=== PATIENT | female | born 1970 | race Caucasian/White ===

== ENCOUNTER 2017-06-17 13:36 | Inpatient (IN) | payer OTHER ==
[2017-06-17] MEDS ORDERED: DIAZEPAM 5 MG/ML 2 ML SYRINGE IVP STA (14:35)
[2017-06-17] MEDS ORDERED: KETOROLAC 30 MG/ML 1 ML VIAL IVP STA (14:35)
[2017-06-17] MEDS ORDERED: ASPIRIN 81 MG PO STA (14:35)
--- NOTE | 2017-06-17 14:41 | ED ---
Back Pain HPI - General Chief Complaint: Back Pain/Injury Stated Complaint: back & neck pain Time Seen by Provider: 06/17/17 14:21 Source: patient Limitations: no limitations - History of Present Illness Initial Comments: Patient is a 46-year-old female presents with a chief complaint thoracic back pain. She states that her pain started this morning about 8:30 when she bent over to pick something up. The patient says that she has a history of chronic back problems and normally has popping in her back however today was much worse. Patient states that since then she has had intense pain in her thoracic spine radiating to her neck and bilateral arms. Patient also complains of chest pain, nausea, and periods of Diaphoresis. Patient has a medical history of chronic back pain, and ADHD. The patient denies any personal cardiac history. Patient states that she smoked a pack and half per day for several years however she quit in 2009. She does not have any significant personal or family cardiac history. She is not hypertensive or diabetic. - Related Data Home Medications Medication Instructions Recorded Confirmed HYDROcodone/APAP 5-325MG [[place] 0.5 - 1 tab PO DAILY PRN 06/17/17 06/17/17 5-325] Allergies Allergy/AdvReac Type Severity Reaction Status Date / Time ibuprofen AdvReac Hallucinati Verified 06/17/17 14:22 ons morphine AdvReac Nausea & Verified 06/17/17 14:22 Vomiting Review of Systems ROS Statement: Those systems with pertinent positive or pertinent negative responses have been documented in the HPI. ROS Other: All systems not noted in ROS Statement are negative. Constitutional: Denies: fever, chills Eyes: Denies: vision change ENT: Denies: ear pain, throat pain Respiratory: Denies: cough Cardiovascular: Reports: chest pain Endocrine: Denies: fatigue Gastrointestinal: Reports: nausea. Denies: abdominal pain, vomiting Genitourinary: Denies: dysuria Musculoskeletal: Reports: back pain Skin: Denies: rash Neurological: Denies: headache Psychiatric: Reports: as per HPI Hematological/Lymphatic: Reports: as per HPI Past Medical History Past Medical History: No Reported History History of Any Multi-Drug Resistant Organisms: None Reported Past Surgical History: Section Additional Past Surgical History / Comment(s): 3 c sections shoulder Past Psychological History: No Psychological Hx Reported, Anxiety Smoking Status: Never smoker Past Alcohol Use History: None Reported Past Drug Use History: Marijuana General Exam Limitations: no limitations General appearance: alert, in no apparent distress Head exam: Present: atraumatic Eye exam: Present: PERRL ENT exam: Present: mucous membranes moist Neck exam: Present: tenderness. Absent: meningismus Respiratory exam: Present: normal lung sounds bilaterally Cardiovascular Exam: Present: regular rate, normal rhythm GI/Abdominal exam: Present: soft. Absent: distended, tenderness Rectal exam: Present: deferred Extremities exam: Absent: tenderness Back exam: Present: tenderness (Patient has tenderness to palpation in the mid to lower thoracic region) Neurological exam: Present: alert, oriented X3, CN II-XII intact, normal gait Psychiatric exam: Present: normal affect, normal mood Skin exam: Present: warm, dry, intact Course Vital Signs 06/17/17 06/17/17 06/17/17 13:44 15:06 15:38 Temperature 97.3 F L Pulse Rate 60 67 73 Respiratory 18 18 18 Rate Blood Pressure 122/67 140/83 132/85 O2 Sat by Pulse 97 99 100 Oximetry 06/17/17 06/17/17 06/17/17 15:43 15:53 15:54 Temperature Pulse Rate 70 84 76 Respiratory 18 18 18 Rate Blood Pressure 116/75 138/85 116/72 O2 Sat by Pulse 99 98 100 Oximetry 06/17/17 06/17/17 15:59 16:00 Temperature 98.3 F Pulse Rate 85 80 Respiratory 18 18 Rate Blood Pressure 123/74 123/74 O2 Sat by Pulse 99 98 Oximetry Medical Decision Making - Medical Decision Making Patient presents with a chief complaint of back pain, and chest pain. Patient describes a mechanism of injury is consistent with an exacerbation of chronic back pain however given the patient is having nausea, and diaphoresis along with chest pain, she will have an EKG, and cardiac workup. They'll have x-rays of the chest, and back. She was given aspirin, Toradol, and Valium for pain control. 3:24 PM EKG performed at 1448 shows sinus rhythm with a rate of 60 bpm. Concerning findings include questionable elevation in lead 3, depressions in lead aVL and aVF. Also 1 mm depression in leads V2 through V5. EKG will be faxed to cardiology speech communication professor. Patient will be given nitroglycerin for chest pain. 3:30 PM I spoke with Dr. uDrand who is concerned for a STEMI. He states he will come to the emergency department. Cath team was activated. Patient was moved to the resuscitation bay. She was given Lipitor, and nitroglycerin. Patient had aspirin on arrival. Patient states that her pain is currently controlled. Her vital signs are stable. She is awake, alert, and oriented. Consent for the [facility] was signed. I will continue to monitor the patient while she is in the emergency department. 3:48 PM Repeat EKG shows ST elevations and leads 3, aVL and aVF. Repeat nitroglycerin will be held. Patient remained stable in the emergency department, she was transferred to the [facility] in stable condition. - Lab Data Result diagrams: 06/17/17 15:00 06/17/17 15:00 Lab Results 06/17/17 06/17/17 06/17/17 Range/Units 15:00 15:00 15:00 WBC 14.6 H (3.8-10.6) k/uL RBC 4.96 (3.80-5.40) m/uL Hgb 13.6 (11.4-16.0) gm/dL Hct 43.8 (34.0-46.0) % MCV 88.4 (80.0-100.0) fL MCH 27.4 (25.0-35.0) pg MCHC 31.0 (31.0-37.0) g/dL RDW 14.5 (11.5-15.5) % Plt Count 242 (150-450) k/uL Neutrophils % 89 % Lymphocytes % 6 % Monocytes % 3 % Eosinophils % 1 % Basophils % 0 % Neutrophils # 13.0 H (1.3-7.7) k/uL Lymphocytes # 0.9 L (1.0-4.8) k/uL Monocytes # 0.5 (0-1.0) k/uL Eosinophils # 0.1 (0-0.7) k/uL Basophils # 0.0 (0-0.2) k/uL Sodium 139 (137-145) mmol/L Potassium 4.5 (3.5-5.1) mmol/L Chloride 107 (98-107) mmol/L Carbon Dioxide 22 (22-30) mmol/L Anion Gap 10 mmol/L BUN 15 (7-17) mg/dL Creatinine 0.80 (0.52-1.04) mg/dL Est GFR (MDRD) Af Amer >60 (>60 ml/min/1.73 sqM) Est GFR (MDRD) Non-Af >60 (>60 ml/min/1.73 sqM) Glucose 143 H (74-99) mg/dL Calcium 9.5 (8.4-10.2) mg/dL Troponin I 1.330 H* (0.000-0.034) ng/mL Disposition Clinical Impression: STEMI (ST elevation myocardial infarction), Mechanical back pain Disposition: ADMITTED IP TO THIS HOSP Condition: Stable Referrals: None,Stated [Primary Care Provider] - 1-2 days Decision to Admit Reason: Admit from EC
[2017-06-17 15:12] LABS: Basophils % (A) 0 %; CHCM 31.8; Eosinophils # (A) 0.1 k/uL (0-0.7); Eosinophils % (A) 1 %; HCT 43.8 % (34.0-46.0); HDW 2.19; HGB 13.6 gm/dL (11.4-16.0); Luc # (Auto) 0.05; Luc % (Auto) 0; Lymphocytes # (A) 0.9 k/uL (1.0-4.8); Lymphocytes % (A) 6 %; MCH 27.4 pg (25.0-35.0); MCV 88.4 fL (80.0-100.0); Mean Platelet Volume 9.3; Monocytes # (A) 0.5 k/uL (0-1.0); Monocytes % (A) 3 %; Neutrophils % (A) 89 %; RBC 4.96 m/uL (3.80-5.40); RDW 14.5 % (11.5-15.5); WBC 14.6 k/uL (3.8-10.6); WBC (Perox) 15.39
[2017-06-17] MEDS: NITROGLYCERIN SL TABS 0.4 MG TAB SUBLINGUAL PRN ×2 (15:26→15:50)
[2017-06-17 15:33] LABS: Anion Gap 10 mmol/L; Blood Urea Nitrogen 15 mg/dL (7-17); Calcium 9.5 mg/dL (8.4-10.2); Carbon Dioxide 22 mmol/L (22-30); Chloride 107 mmol/L (98-107); Glucose 143 mg/dL (74-99); Non-African American GFR(MDRD) >60 (>60 ml/min/1.73 sqM); Potassium 4.5 mmol/L (3.5-5.1); Sodium 139 mmol/L (137-145)
--- NOTE | 2017-06-17 15:34 | XR ---
EXAMINATION TYPE: XR chest 2V DATE OF EXAM: 06/17/2017 COMPARISON: NONE HISTORY: Pain TECHNIQUE: Frontal and lateral views of the chest are obtained. FINDINGS: There is no focal air space opacity, pleural effusion, or pneumothorax seen. The cardiac silhouette size is within normal limits. The osseous structures are intact, postop change suspected the distal right clavicle. Patient is rotated. Surgical clips present in the upper abdomen IMPRESSION: No acute cardiopulmonary process.
--- NOTE | 2017-06-17 15:35 | XR ---
Thoracic spine HISTORY: Pain 3 views of the thoracic spine Thoracic vertebral bodies show preserved height, alignment, and bone mineralization. Multilevel spond ylosis is present. Disc spaces are maintained. Surgical clips in the right upper quadrant. IMPRESSION: Thoracic spondylosis.
[2017-06-17] MEDS ORDERED: CLOPIDOGREL 75 MG TAB PO STA (15:44)
[2017-06-17] MEDS ORDERED: HEPARIN SODIUM,PORCINE 5,000 UNIT/ML 1 ML VIAL IV STA (15:44)
[2017-06-17] MEDS ORDERED: HEPARIN SODIUM,PORCINE/D5W PMX 25,000 UNIT in DEXTROSE/WATER 1 500ML.BAG IV STA ×2 (15:44→15:51)
[2017-06-17] MEDS ORDERED: ATORVASTATIN 80 MG TAB PO STA (15:46)
[2017-06-17] MEDS ORDERED: NALOXONE 0.4 MG/ML 1 ML VIAL IV PRN (16:12)
[2017-06-17] MEDS ORDERED: LIDOCAINE 2% INJ 20 MG/ML (20 ML MDV) ONE (16:20)
[2017-06-17] MEDS ORDERED: diphenhydrAMINE 50 MG/ML 1 ML VIAL ONE (16:24)
[2017-06-17] MEDS ORDERED: MIDAZOLAM 2 MG/2 ML VIAL ONE (16:24)
[2017-06-17] MEDS ORDERED: diphenhydrAMINE 50 MG/ML 1 ML VIAL IVP ONE (16:25)
[2017-06-17] MEDS ORDERED: MIDAZOLAM 2 MG/2 ML VIAL IVP ONE (16:25)
[2017-06-17] MEDS ORDERED: LIDOCAINE 2% INJ 20 MG/ML SQ ONE (16:28)
[2017-06-17] MEDS ORDERED: SODIUM CHLORIDE 0.9% 1,000 ML IV ONE (16:34)
[2017-06-17] MEDS ORDERED: BIVALIRUDIN BOLUS 250 MG/50 ML IV ONE (16:37)
[2017-06-17] MEDS ORDERED: BIVALIRUDIN 250 MG in SODIUM CHLORIDE 0.9% 50 ML IV ONE (16:38)
[2017-06-17] MEDS: niCARdipine Syringe (1,000 mcg/10 mL) INTRACORON ONE ×2 (16:49→16:55)
[2017-06-17] MEDS ORDERED: HYDROmorphone 2 MG/ML 1 ML SYRINGE ONE (17:02)
[2017-06-17] MEDS ORDERED: HYDROmorphone 2 MG/ML 1 ML SYRINGE IV ONE (17:03)
[2017-06-17] MEDS ORDERED: IOHEXOL 350 MG/ML 100 ML BOTTLE INJ ONE (17:04)
[2017-06-17] MEDS ORDERED: NITROGLYCERIN SL TABS 0.4 MG TAB SUBLINGUAL PRN (17:53)
[2017-06-17] MEDS ORDERED: ZOLPIDEM 5 MG TAB PO PRN (17:53)
[2017-06-17] MEDS ORDERED: ATROPINE SULFATE 0.1 MG/ML 10ML SYRINGE IV PRN (17:53)
[2017-06-17] MEDS ORDERED: MAG HYDROX/AL HYDROX/SIMETH 30 ML CUP PO PRN (17:53)
[2017-06-17] MEDS ORDERED: RX INFO: IV CONTRAST WAS GIVEN 1 EACH MISC MISCELLANE PRN (17:53)
[2017-06-17 17:58] LABS: Glucose,Whole Blood 121 mg/dL (75-99)
[2017-06-17] MEDS ORDERED: FUROSEMIDE 10 MG/ML 2 ML VIAL IV ONE (18:00)
[2017-06-17] MEDS ORDERED: SODIUM CHLORIDE 0.9% 1,000 ML IV SCH (18:00)
--- NOTE | 2017-06-17 18:38 | CONS ---
CONSULTATION This is a 46-year-old lady who does not have a primary care physician. Her brought her in because she was complaining of back discomfort. According to the ER physician, with whom I spoke, she complained of saying that she had a back discomfort when she bent down to pick something up. He evaluated the patient initially and then later on almost an hour or so later there were some review of systems and he thought she had some diaphoresis and he went back and talked to her and she then told me she had chest pain starting at about 7:30 or 8:00 this morning. In view of this, he ordered an EKG, which revealed inferior ST elevation, but there were only Q-waves in 2, 3, AVF. It is unclear when her chest pain actually started, although the patient insists on my questioning that they started around 8:00 a.m. this morning. At the time of my evaluation, she was complaining of upper back discomfort with also some vague discomfort in the anterior chest as well. She was hemodynamically stable, in no distress. She is not a smoker. She quit smoking in 2009 and has a family history of CAD, but no diabetes or hypertension and cholesterol status is unknown. In view of her upper back discomfort and also chest discomfort that occurred at 7:00 or 8:00 am this morning, and in view of EKG changes, I recommend that we will take her to the labor supervisor and treat this as a myocardial infarction with atypical presentation and a chest pain of about 12 hour duration. There was evidence of ST elevation involving the inferior leads, but there were already Q-waves. PAST MEDICAL HISTORY: No evidence of any prior myocardial infarction or CVA. She has no history of any diabetes or hypertension. She is a past smoker and has family history of CAD. MEDICATIONS: At home she takes some hydrocodone/[place] 5/325 half a tablet p.r.n. ALLERGIES: She is allergic to morphine and ibuprofen. PHYSICAL EXAMINATION: Blood pressure is 130/80, pulse rate is about 84 per minute, regular. HEENT: Unremarkable. Fundus was not examined by me. Neck is supple. No JVD. I do not hear a carotid bruit. Heart exam reveals S1, S2 heard normally. No rub, murmur or rp3ngpt. Lungs are clear. Abdomen is soft, nontender. Lower extremities reveal normal pulses. No edema. Central nervous system is normal. 1. EKG revealed sinus mechanism, inferior ST elevation with Q-waves suggestive of a subacute myocardial infarction. 2. Family history of coronary artery disease. 3. Past history of smoking. RECOMMENDATION: I recommended prompt cardiac catheterization and intervention and proceeded to perform procedure expeditiously. I discussed at length with the patient and also her regarding risks, benefits, and options. They understood and agreed and wished to proceed. MMVITOL / LUIS MIGUELN: [id number] /
--- NOTE | 2017-06-17 18:44 | CC ---
CARDIAC CATHETERIZATION REPORT DATE OF SERVICE: 06/17/2017 PROCEDURE: 1. Left heart catheterization and coronary angiography. 2. Aspiration thrombectomy using an export catheter. 3. PTCA and stenting of proximal right coronary artery with a drug-eluting stent. CARDIAC CATHETER FINDINGS: 1. Dominant RCA with a 95% proximal occlusion with laden with thrombus. 2. Nondominant circumflex and LAD and left main were free of significant disease. 3. Left ventricular end-diastolic pressure was 26 mmHg without gradient across the aortic valve. MEDICATIONS USED: The patient received 600 mg of Plavix in the emergency room. The patient received Angiomax bolus and infusion as per protocol here in the [facility]. Vascular closure device used was a Perclose with good hemostasis. Moderate conscious sedation was provided with a Versed and Benadryl combination for a total duration of 45 minutes. CLINICAL INFORMATION: Mrs. Leonie Amador presented with atypical back discomfort and also then complained of some chest pain, had some diaphoresis and EKG after an hour after arrival revealed ST elevation and Q-waves in inferior leads and therefore she was advised cardiac catheterization. PROCEDURE NOTE: Under local anesthesia and strict aseptic precautions, a 6-[place] introducer was placed in the right femoral artery. Using a standard left Edith catheter, I performed selective coronary angiography, used a pigtail catheter to a check LV pressures. LV gram was not performed. Used a guide catheter for the right coronary artery and proceeded to perform intervention in the same setting. I had noted that patient had a 95% stenosis involving the RCA. I addressed this expeditiously. The patient was given Angiomax bolus and infusion as per protocol. I used a run-through wire to cross the lesion. Wire was kept distally 3.0 caliber 15 mm long trek balloon was used to pre- dilate the lesion. There was a lot of thrombus. I then performed aspiration thrombectomy using an export catheter with a significant improvement in angiographic appearance and flow. I then used a 23 mm long 3.25 caliber Xience stent and deployed this at the site of subtotal occlusion. Excellent angiographic result was achieved. I also used a nicardipine intracoronary and this improved the overall flow. Excellent angiographic result without complication was achieved. The sheath was taken out and a Perclose device used to secure hemostasis and patient was sent to the room in stable condition. CORONARY ANGIOGRAPHY FINDINGS: Right coronary artery: This is a dominant vessel that is subtotally occluded in the proximal portion sluggish flow, 99% stenosis with significant amount of thrombus. Distal vessel seemed to be a fairly decent caliber. This was a dominant RCA. Left main coronary artery: Short, patent disease-free vessel that bifurcates into LAD and circumflex. Left anterior descending coronary artery: Fair caliber vessel extends along the antral wall gives off septal and diagonal branches, runs towards the apex and towards the apex the vessel is of small caliber in distribution. LAD is therefore smaller caliber in distribution vessel. No significant disease. Left posterior circumflex coronary artery: This vessel has a very limited flow. The left circumflex branch in the vessel is extremely small. This is a nondominant insignificant circumflex system. FINAL IMPRESSION: This patient had 99% proximal RCA stenosis with thrombus. RCA was dominant. Left main, LAD and circumflex were all free of significant disease. Circumflex was small. Left ventricular end-diastolic pressure was elevated. A drug-eluting stent was deployed and a 3.25 caliber Xience stent was deployed. Excellent angiographic result was achieved. Results were discussed with the patient and family and patient was sent to the ICU in a stable condition. MMODL / IJN: [id number] /
[2017-06-17] MEDS: CARVEDILOL 3.125 MG TAB PO SCH (18:59)
[2017-06-18 04:50] LABS: Basophils % (A) 0 %; CH 27.9; CHCM 32.2; Eosinophils % (A) 0 %; HCT 37.6 % (34.0-46.0); HDW 2.27; HGB 12.1 gm/dL (11.4-16.0); Luc # (Auto) 0.14; Luc % (Auto) 1; Lymphocytes # (A) 1.5 k/uL (1.0-4.8); Lymphocytes % (A) 13 %; MCHC 32.1 g/dL (31.0-37.0); MCV 87.1 fL (80.0-100.0); Mean Platelet Volume 8.2; Monocytes # (A) 0.7 k/uL (0-1.0); Monocytes % (A) 6 %; Neutrophils # (A) 9.5 k/uL (1.3-7.7); Neutrophils % (A) 80 %; RBC 4.31 m/uL (3.80-5.40); RDW 13.2 % (11.5-15.5); WBC (Perox) 11.78
[2017-06-18 05:03] LABS: Anion Gap 5 mmol/L; Blood Urea Nitrogen 15 mg/dL (7-17); Calcium 8.6 mg/dL (8.4-10.2); Carbon Dioxide 25 mmol/L (22-30); Chloride 107 mmol/L (98-107); Glucose 122 mg/dL (74-99); Magnesium 1.9 mg/dL (1.6-2.3); Non-African American GFR(MDRD) >60 (>60 ml/min/1.73 sqM); Phosphorous 3.1 mg/dL (2.5-4.5); Potassium 3.9 mmol/L (3.5-5.1); Sodium 137 mmol/L (137-145)
[2017-06-18] MEDS ORDERED: Potassium Replacement Protocol 1 EACH MISC MISCELLANE PRN (05:22)
[2017-06-18] MEDS: MAGNESIUM SULFATE-D5W PMX 1 GM in DEXTROSE/WATER 1 100ML.BAG IVPB SCH ×2 (05:51→08:09)
[2017-06-18] MEDS ORDERED: POTASSIUM CHLORIDE ER 20 MEQ TAB.ER PO SCH (06:00)
[2017-06-18] MEDS: CLOPIDOGREL 75 MG TAB PO SCH (08:07)
[2017-06-18] MEDS: CARVEDILOL 3.125 MG TAB PO SCH ×2 (08:07→18:19)
[2017-06-18] MEDS: ASPIRIN 81 MG PO SCH (08:07)
[2017-06-18] MEDS: LOSARTAN 25 MG TAB PO SCH (08:07)
[2017-06-18 10:43] VITALS: BMI 37.7
--- NOTE | 2017-06-18 11:12 | PN ---
PROGRESS NOTE Mrs. Amador suffered from an acute NV yesterday. It is a inferior-posterior NV. I performed stenting of RCA. No significant disease in the left system. Her troponin went up to 150. She is comfortable, resting, not in heart failure. Blood pressure 108/70, pulse rate 70 per minute. JVD is not evident. S1, S2 heard normally. No significant murmur noted. Lungs are clear. Abdomen and lower extremity exam is unchanged. Plan is to obtain an echo and review it today. Continue current medications. Increase activity and move her to the telemetry tomorrow. The patient has quit smoking in 2009. Advised to continue to refrain from smoking and continue current medical regimen. Increase activity. MMODL / IJN: [id number] /
[2017-06-18] MEDS: ATORVASTATIN 80 MG TAB PO SCH (21:07)
[2017-06-19 04:55] LABS: INR 1.1 (<1.2); Prothrombin Time 10.7 sec (9.0-12.0)
[2017-06-19 05:15] LABS: Anion Gap 7 mmol/L; Blood Urea Nitrogen 11 mg/dL (7-17); Calcium 8.9 mg/dL (8.4-10.2); Carbon Dioxide 21 mmol/L (22-30); Chloride 107 mmol/L (98-107); Glucose 101 mg/dL (74-99); Magnesium 2.1 mg/dL (1.6-2.3); Non-African American GFR(MDRD) >60 (>60 ml/min/1.73 sqM); Phosphorous 2.8 mg/dL (2.5-4.5); Potassium 4.3 mmol/L (3.5-5.1); Sodium 135 mmol/L (137-145)
[2017-06-19 05:18] LABS: Basophils % (A) 0 %; CHCM 31.6; Eosinophils % (A) 0 %; HCT 40.7 % (34.0-46.0); HGB 12.9 gm/dL (11.4-16.0); Luc # (Auto) 0.19; Luc % (Auto) 2; Lymphocytes # (A) 2.1 k/uL (1.0-4.8); Lymphocytes % (A) 17 %; MCH 28.2 pg (25.0-35.0); MCHC 31.7 g/dL (31.0-37.0); MCV 88.9 fL (80.0-100.0); Mean Platelet Volume 8.5; Monocytes # (A) 0.8 k/uL (0-1.0); Monocytes % (A) 7 %; Neutrophils # (A) 9.1 k/uL (1.3-7.7); Neutrophils % (A) 74 %; RBC 4.58 m/uL (3.80-5.40); RDW 13.2 % (11.5-15.5); WBC 12.3 k/uL (3.8-10.6); WBC (Perox) 12.92
[2017-06-19] MEDS: ASPIRIN 81 MG PO SCH (07:56)
[2017-06-19] MEDS: CLOPIDOGREL 75 MG TAB PO SCH (07:56)
[2017-06-19] MEDS: CARVEDILOL 3.125 MG TAB PO SCH ×2 (07:56→17:12)
--- NOTE | 2017-06-19 08:38 | ECHOF ---
Referral Reason:S/P Inf TN PCI MEASUREMENTS -------- HEIGHT: 160.0 cm WEIGHT: 99.8 kg BP: 95/60 IVSd: 1.0 cm (0.6 - 1.1) LVIDd: 4.6 cm (3.9 - 5.3) LVPWd: 1.2 cm (0.6 - 1.1) IVSs: 1.4 cm LVIDs: 4.1 cm LVPWs: 1.2 cm Ao Diam: 3.0 cm (2.0 - 3.7) AV Cusp: 2.2 cm (1.5 - 2.6) LA Diam: 3.4 cm (2.7 - 3.8) MV EXCURSION: 15.618 mm (> 18.000) MV EF SLOPE: 114 mm/s (70 - 150) EPSS: 0.5 cm MV E Shorty: 0.89 m/s MV DecT: 189 ms MV A Shorty: 0.81 m/s MV E/A Ratio: 1.10 RAP: 5.00 mmHg RVSP: 11.16 mmHg FINDINGS -------- Sinus rhythm. This was a technically good study. The left ventricular size is normal. There is borderline concentric left ventricular hypertrophy. Overall left ventricular systolic function is mild-moderately impaired with, an EF between 40 - 45 % . Inferior Hypokinesis Mid to basal inferiorlateral is hypokinetic Inferoseptal is hypokinetic The right ventricle is normal in size and function. The left atrium is normal in size. The right atrium is normal in size. The aortic valve is trileaflet, and appears structurally normal. No aortic stenosis or regurgitation. There is trace mitral regurgitation. Trace tricuspid regurgitation present. The right ventricular systolic pressure, as measured by Dopp ler, is 11.16mmHg. Pulmonic valve appears structurally normal. The aortic root size is normal. The pericardium is normal. CONCLUSIONS -------- 1. Sinus rhythm. 2. This was a technically good study. 3. The left ventricular size is normal. 4. There is borderline concentric left ventricular hypertrophy. 5. Inferior Hypokinesis 6. Mid to basal inferiorlateral is hypokinetic 7. Inferoseptal is hypokinetic 8. The right ventricle is normal in size and function. 9. The left atrium is normal in size. 10. The right atrium is normal in size. 11. The aortic valve is trileaflet, and appears structurally normal. No aortic stenosis or regurgitat ion. 12. There is trace mitral regurgitation. 13. Trace tricuspid regurgitation present. 14. The right ventricular systolic pressure, as measured by Doppler, is 11.16mmHg. 15. Pulmonic valve appears structurally normal. 16. The aortic root size is normal. 17. The pericardium is normal. SOCIAL MEDIA CAMPAIGN MANAGER: Halina Gallagher RDCS
[2017-06-19] MEDS: LOSARTAN 25 MG TAB PO SCH (11:05)
--- NOTE | 2017-06-19 11:06 | PN ---
PROGRESS NOTE This young lady presented with acute inferior posterior MA. Echo revealed ejection fraction in the 40% range. She had a short run of what seemed to be a PAD or atrial flutter, which was very brief, less than 10 seconds. She is resting comfortably without symptoms. Vitals are stable. I am asking that we give the losartan at bedtime as opposed to morning because of her blood pressure is on the lower end of normal, S1, S2 heard normally. Lungs are clear. Abdomen and lower exam unchanged. There is no JVD. Plan is to continue current medication. Increase activity and move her to telemetry today. MMODL / IJN: [id number] /
[2017-06-19] MEDS ORDERED: HYDROcodone/APAP 5-325MG 1 EACH TAB PO PRN (13:58)
[2017-06-19 14:57] LABS: ALT 54 U/L (9-52); AST 122 U/L (14-36); Alkaline Phosphatase 79 U/L (38-126); Anion Gap 8 mmol/L; Blood Urea Nitrogen 10 mg/dL (7-17); Carbon Dioxide 22 mmol/L (22-30); Chloride 108 mmol/L (98-107); Glucose 103 mg/dL (74-99); Non-African American GFR(MDRD) >60 (>60 ml/min/1.73 sqM); Potassium 4.3 mmol/L (3.5-5.1); Sodium 138 mmol/L (137-145); Total Bilirubin 0.9 mg/dL (0.2-1.3); Total Protein 6.3 g/dL (6.3-8.2)
--- NOTE | 2017-06-19 15:33 | HP ---
HISTORY AND PHYSICAL CHIEF COMPLAINTS: Chest pain. HISTORY OF PRESENT ILLNESS: This 46-year-old woman with a past history of asthma, GERD, history of pneumonia, chronic back pain, not being followed by any primary care physician in the outpatient setting was admitted with chest pain which is felt in the anterior part of chest which is severe in character. Patient also had significant changes in the EKG showed acute inferior wall myocardial infarction with atrophic changes. Patient had cardiac catheterization and thrombectomy and as well as stenting in the PTCA and stenting of the proximal RCA with a drug-eluting stent by cardiology. Patient being closely monitored. There is no history of fever, rigors. No headache, loss of consciousness, no history of any hematochezia or melena at this time. PAST MEDICAL HISTORY: Asthma, GERD, history of pneumonia, DJD ADHD, history of smoking. MEDICATIONS: Prior to admission, [place] 5 mg daily p.r.n. ALLERGIES: IBUPROFEN, MORPHINE. FAMILY HISTORY: History of cancer and migraines. SOCIAL HISTORY: Previous history of smoking. Occasional THC. REVIEW OF SYSTEMS: ENT: No diminished vision. No diminished hearing. Cardiovascular as mentioned earlier. Respiratory: As mentioned earlier. GI no nausea or vomiting. no dysuria or retention. Nervous system: No numbness or weakness. Allergy/Immunology: No asthma or hayfever. MUSCULOSKELETAL: As mentioned earlier. HEMATOLOGY/ONCOLOGY: No history of anemia. Endocrine: No history of diabetes or hypothyroidism. Constitutional: As mentioned earlier. Dermatology: Negative. Rheumatology: Negative. Psychiatric: As mentioned earlier. PHYSICAL EXAMINATION: Alert and oriented times three. Pulse 78, blood pressure 102/68 respiration 18, temperature 98 degrees, pulse ox 98% on room air. HEENT: Conjunctivae normal. Oral mucosa moist. Neck is no jugular venous distention. No carotid bruit. No lymph node enlargement. Cardiovascular S1-S2 muffled. No S3, no S4. Respiratory: Breath sounds diminished in the bases. A few rhonchi and no crackles. ABDOMEN: Soft, nontender. No mass palpable. Legs no edema and no swelling. NERVOUS SYSTEM: Higher functions as mentioned earlier. Moves all four limbs. No focal deficits. Lymphatics: No lymph nodes palpable in the neck, axillae or groin. SKIN: No ulcer, rashes or bleeding. LABS: At this time WBC 12.2, hemoglobin 12.9. ASSESSMENT: 1. Chest pain, acute inferior wall myocardial infarction status post cardiac catheterization, PTCA and stenting of the RCA. 2. Increased WBC, possibly reactive. 3. History of asthma. 4. History of gastroesophageal reflux disease. 5. History of pneumonia. 6. History of chronic back pain. 7. Degenerative joint disease. 8. History of attention-deficit/hyperactivity disorder. 9. History of anxiety. 10.History of cholecystectomy. 11.Remote history of nicotine dependence. 12.Remote history of ETOH. RECOMMENDATIONS AND DISCUSSION: In this 46-year-old woman who presented with multiple complex medical issues, we will monitor the patient closely, continue the current medications. Continue with beta blockers and antiplatelet agents. Patient is on Plavix and aspirin. Otherwise continue to monitor. Repeat labs. Continue with Lipitor. Prognosis guarded because of the multiple complex medical issues. Discussed with the patient. Follow closely cardiology. Increase ambulation. Further recommendations to follow. MMVITOL / LUIS MIGUELN: [id number] /
[2017-06-19] MEDS ORDERED: LOSARTAN 25 MG TAB PO SCH (21:00)
[2017-06-19] MEDS: ATORVASTATIN 80 MG TAB PO SCH (22:31)
[2017-06-20 02:49] VITALS: RESP 18
[2017-06-20 06:23] LABS: Basophils # (A) 0.1 k/uL (0-0.2); Basophils % (A) 1 %; CH 27.8; CHCM 31.7; Eosinophils # (A) 0.1 k/uL (0-0.7); Eosinophils % (A) 1 %; HCT 43.7 % (34.0-46.0); HDW 2.13; HGB 13.8 gm/dL (11.4-16.0); Luc # (Auto) 0.15; Luc % (Auto) 1; Lymphocytes % (A) 16 %; MCH 27.7 pg (25.0-35.0); MCHC 31.5 g/dL (31.0-37.0); Mean Platelet Volume 8.9; Monocytes # (A) 0.8 k/uL (0-1.0); Monocytes % (A) 6 %; Neutrophils # (A) 9.6 k/uL (1.3-7.7); Neutrophils % (A) 76 %; RBC 4.96 m/uL (3.80-5.40); RDW 14.3 % (11.5-15.5); WBC 12.7 k/uL (3.8-10.6); WBC (Perox) 13.01
[2017-06-20] MEDS: ASPIRIN 81 MG PO SCH (08:05)
[2017-06-20] MEDS: CLOPIDOGREL 75 MG TAB PO SCH (08:05)
[2017-06-20 09:00] VITALS: TEMP 97.8
[2017-06-20] MEDS: CARVEDILOL 3.125 MG TAB PO SCH (09:56)
[2017-06-20 10:08] VITALS: BP 132/80
[2017-06-20 11:00] VITALS: PULSE 75
--- NOTE | 2017-06-20 13:51 | P.DS ---
Providers Date of admission: 06/17/17 16:21 Expected date of discharge: 06/20/17 Attending physician: Marie Oconnell Consults: 06/17/17 17:53 Consult Physician Routine Consulting Provider: [facility] Consult Reason/Comments: Post Interventional patient Do you want consulting provider notified?: Already Contacted Primary care physician: Stated None Dr. 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 leukocytosis, possibly reactive 3. Gastroesophageal reflux disease 4. Degenerative joint disease 5. Remote history of nicotine dependence 6.attention deficit/hyperactivity disorder Hospital course:this is a 46-year-old femaleadmitted with acute inferior wall SC. evaluated by cardiology, underwent cardiac catheterization, PTCA and stenting of the RCA. tolerated procedure well. ambulating, tolerating exertion well, denies chest pain, no focal deficits.Significant clinical improvement.Patient has been cleared for discharge by cardiology. Patient is being discharged home in a stable condition with guarded prognosis. The impression and plan of care has been dictated as directed. : I performed a history and examination of this patient, discussed the same with the dictator. I agree with the dictator's note ,documented as a scribe. Any additional findings or plans will be noted. Patient Condition at Discharge: Stable Plan - Discharge Summary Discharge Rx Participant: Yes New Discharge Prescriptions: New Aspirin 81 mg PO DAILY #30 chew Atorvastatin [Lipitor] 80 mg PO HS #30 tab Carvedilol [Coreg] 3.125 mg PO BID-W/MEALS #60 tab Clopidogrel [Plavix] 75 mg PO DAILY #30 tab Losartan [Cozaar] 25 mg PO HS #30 tab Nitroglycerin Sl Tabs [Nitrostat] 0.4 mg SUBLINGUAL Q5M PRN #100 tab PRN Reason: Chest Pain Continue HYDROcodone/APAP 5-325MG [Alma 5-325] 0.5 - 1 tab PO DAILY PRN PRN Reason: Pain Discharge Medication List HYDROcodone/APAP 5-325MG [Alma 5-325] 0.5 - 1 tab PO DAILY PRN 06/17/17 [ History] Aspirin 81 mg PO DAILY #30 chew 06/20/17 [Rx] Atorvastatin [Lipitor] 80 mg PO HS #30 tab 06/20/17 [Rx] Carvedilol [Coreg] 3.125 mg PO BID-W/MEALS #60 tab 06/20/17 [Rx] Clopidogrel [Plavix] 75 mg PO DAILY #30 tab 06/20/17 [Rx] Losartan [Cozaar] 25 mg PO HS #30 tab 06/20/17 [Rx] Nitroglycerin Sl Tabs [Nitrostat] 0.4 mg SUBLINGUAL Q5M PRN #100 tab 06/20/17 [ Rx] Follow up Appointment(s)/Referral(s): Gerber Roa MD [REFERRING] - 3 Days (Please schedule prior to discharge.) Ambulatory/Diagnostic Orders: Comprehensive Metabolic Panel [LAB.AMB] Time Frame: 3 Days, Location: Determined By Patient Patient Instructions/Handouts: *[facility] - After Heart Catheterization - Watch Technician Instructions Activity/Diet/Wound Care/Special Instructions: Confirm cardiology final DC recommendations, and schedule cardiology follow-up appointment prior to discharge DIet: Cardiac
--- NOTE | 2017-06-20 15:02 | PN ---
PROGRESS NOTE This lady suffered from inferoposterior KS. She is doing better. Denies chest pains. Functional capacity has improved. Ejection fraction is about 40%. Vital signs are stable. No JVD. S1-S2 heard normally. Lungs are clear. Abdomen lower extremity exam unchanged. Plan is to continue current medications. Increase activity and discharge her and she will be seen in the office in 1 week. MMODL / LUIS MIGUELN: [id number] /
== END 2017-06-20 14:33 | disposition home or self-care (01) | DRG 174 ==
LOC: EC 13:36 → 6ICU 16:21 → 6SEL 06-19 11:21
PROVIDERS: ADMIT Internal Medicine Interventional Cardiology; ATTEND Hospitalist
PROC: B2111ZZ Fluoroscopy of Multiple Coronary Arteries using Low Osmolar Contrast (ICD-10-PCS; 2017-06-17)
PROC: 02C03ZZ Extirpation of Matter from Coronary Artery, One Artery, Percutaneous Approach (ICD-10-PCS; 2017-06-17)
PROC: 027034Z Dilation of Coronary Artery, One Artery with Drug-eluting Intraluminal Device, Percutaneous Approach (ICD-10-PCS; principal; 2017-06-17 16:05)
PROC: 4A023N7 Measurement of Cardiac Sampling and Pressure, Left Heart, Percutaneous Approach (ICD-10-PCS; 2017-06-17 16:05)
DX: I21.19 ST elevation (STEMI) myocardial infarction involving other coronary artery of inferior wall (principal); I48.92 Unspecified atrial flutter; F12.90 Cannabis use, unspecified, uncomplicated; F90.9 Attention-deficit hyperactivity disorder, unspecified type; G89.29 Other chronic pain; I25.10 Atherosclerotic heart disease of native coronary artery without angina pectoris; J45.909 Unspecified asthma, uncomplicated; K21.9 Gastro-esophageal reflux disease without esophagitis; M19.90 Unspecified osteoarthritis, unspecified site; D72.829 Elevated white blood cell count, unspecified; F41.9 Anxiety disorder, unspecified; M54.9 Dorsalgia, unspecified; I49.1 Atrial premature depolarization; Z87.891 Personal history of nicotine dependence; Z88.6 Allergy status to analgesic agent; Z88.5 Allergy status to narcotic agent; Z82.49 Family history of ischemic heart disease and other diseases of the circulatory system
CPT/HCPCS: 36415; 71020; 72072; 80048; 80053; 83735; 84100; 84132; 84484; 85025; 85610; 93005; 93306; 93458; 96365; 96375; 96376; 99285

== ENCOUNTER → 2020-05-28 | Outpatient (CLI) | payer OTHER ==
[2020-05-28 11:51] LABS: Basophils % (A) 1 %; Eosinophils # (A) 0.1 k/uL (0-0.7); Eosinophils % (A) 1 %; HCT 40.9 % (34.0-46.0); Lymphocytes # (A) 1.7 k/uL (1.0-4.8); Lymphocytes % (A) 23 %; MCH 28.8 pg (25.0-35.0); MCHC 31.7 g/dL (31.0-37.0); MCV 90.9 fL (80.0-100.0); Mean Platelet Volume 8.9; Monocytes # (A) 0.4 k/uL (0-1.0); Monocytes % (A) 5 %; Neutrophils # (A) 5.1 k/uL (1.3-7.7); Neutrophils % (A) 69 %; Platelet Count 195 k/uL (150-450); RDW 13.4 % (11.5-15.5); WBC 7.4 k/uL (3.8-10.6)
[2020-05-28 21:04] LABS: African American GFR (CKD) 99.6 (60.0-200.0); Albumin 4.3 g/dL (3.80-4.90); Albumin/Globulin Ratio 2.05 (1.60-3.17); Anion Gap 6.3 mmol/L (4.00-12.00); BUN/Creat Ratio 17.5 Ratio (12.00-20.00); Calcium 9.1 mg/dL (8.7-10.3); Carbon Dioxide 25.7 mmol/L (21.6-31.8); Globulin 2.1 g/dL (1.6-3.3); Potassium 4.1 mmol/L (3.5-5.5); Total Bilirubin 0.7 mg/dL (0.3-1.2); Total Protein 6.4 g/dL (6.2-8.2)
[2020-05-28 21:06] LABS: Hemoglobin A1C 6.1 % (4.0-6.0)
[2020-05-28 21:10] LABS: T4, Free (Free Thyroxine) 1.1 ng/dL (0.80-1.80)
[2020-05-28 22:31] LABS: Erythrocyte Sedimentation Rate 19 mm/Hr (0-20)
== END | disposition home or self-care (01) ==
LOC: LABWHC1 10:32
PROVIDERS: ATTEND Internal Medicine
DX: K21.9 Gastro-esophageal reflux disease without esophagitis (principal); I25.10 Atherosclerotic heart disease of native coronary artery without angina pectoris; R53.82 Chronic fatigue, unspecified
CPT/HCPCS: 36415; 80053; 82306; 82607; 83036; 84439; 84443; 85025; 85652; 86431

== ENCOUNTER → 2020-06-25 | Outpatient (CLI) | payer OTHER ==
--- NOTE | 2020-06-26 14:08 | MR ---
EXAMINATION TYPE: MR lumbar spine wo con DATE OF EXAM: 06/25/2020 COMPARISON: NONE HISTORY: LBP, BLE radiculopathy for 5 months per patient. TECHNIQUE: Multiplanar, multisequence imaging of the lumbar spine is performed without IV contrast. FINDINGS: Sagittal images of the lumbar spine show vertebral body heights to remain satisfactory. The re is grade 1 retrolisthesis L5 on S1. The intervertebral discs demonstrate normal heights and hydrat ion. The conus medullaris is normal in position and signal ending at L1-L2 disc space level. 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 The bone marrow signal intensity is within normal l imits. Axial images show T12-L1 level to appear within normal limits. Axial images at L1-L2 and L2-L3 levels and mild/moderate facet degenerative changes bilaterally. Axial images at L3-L4 level mild broad disc bulge and facet arthropathy bilaterally. There is mild ef facement of the anterolateral thecal sac. Patent bilateral neural foramina. Axial images at L4-L5 level show mild/moderate facet arthropathy bilaterally. Spinal canal is preserv ed. Patent bilateral neural foramina. Axial images at the L5-S1 level show mild facet arthropathy bilaterally otherwise are within normal l imits. The paraspinal spinal muscle bulk is maintained. IMPRESSION: Mild multilevel degenerative changes in the lumbar spine as detailed above. No suspicious prominent focal disc herniation.
== END | disposition home or self-care (01) ==
LOC: RADMRIMAIN 15:32
PROVIDERS: ATTEND Internal Medicine
DX: M47.26 Other spondylosis with radiculopathy, lumbar region (principal)
CPT/HCPCS: 72148

== ENCOUNTER → 2021-04-01 | Outpatient (CLI) | payer BC, OTHER | END | disposition home or self-care (01) | LOC: LABWHC1 16:13 | PROVIDERS: ATTEND Internal Medicine Interventional Cardiology | DX: E03.9 Hypothyroidism, unspecified (principal) | CPT/HCPCS: 36415; 84443 ==

== ENCOUNTER → 2022-03-17 | Outpatient (CLI) | payer OTHER ==
[2022-03-17 18:56] LABS: African American GFR (CKD) 86.1 (60.0-200.0); BUN/Creat Ratio 17.15 Ratio (12.00-20.00); Blood Urea Nitrogen 15.3 mg/dL (9.0-27.0); Calcium 9.4 mg/dL (8.7-10.3); Carbon Dioxide 24.1 mmol/L (20.0-27.5); Chloride 105 mmol/L (96-109); Glucose 114 mg/dL (70-110); Non-African American GFR(CKD) 74.3 (60.0-200.0); Potassium 4.1 mmol/L (3.5-5.5); Sodium 140 mmol/L (135-145)
== END | disposition home or self-care (01) ==
LOC: LABWHC1 10:36
PROVIDERS: ATTEND Internal Medicine Interventional Cardiology
DX: I25.10 Atherosclerotic heart disease of native coronary artery without angina pectoris (principal); R53.83 Other fatigue
CPT/HCPCS: 36415; 80048; 84443

== ENCOUNTER 2022-08-17 06:44 | Day surgery (SDC) | payer OTHER ==
[~2022-08-17 06:44] MED LIST: LACTATED RINGERS 1,000 ML IV SCH; LIDOCAINE 1% (10MG/ML) FOR IV START INTRADERMA PRN
[2022-08-17 07:16] VITALS: TEMP 97
[2022-08-17] MEDS ORDERED: PROPOFOL 10 MG/ML 20 ML VIAL IV ONE (07:49)
[2022-08-17] MEDS ORDERED: LIDOCAINE 2% INJ 20 MG/ML (2 ML VIAL) ONE (07:49)
--- NOTE | 2022-08-17 08:08 | P.PCN ---
Date of Procedure: 08/17/22 Procedure(s) Performed: Brief history: Patient is a pleasant 51-year-old white female scheduled for an elective upper endoscopy as well as colonoscopy as a part of evaluation of intermittent nausea vomiting as well as a habits for the last several years duration. Her symptoms have been progressively getting worse lately. She denies any recent weight loss. Procedure performed: Esophagogastroduodenoscopy with biopsy Colonoscopy with biopsy and snare polypectomy Preoperative diagnosis: Chronic persistent nausea with intermittent emesis of several months duration Chronic diarrhea Anesthesia: MAC Procedure: After informed consent was obtained from the patient was brought into the endoscopy unit and IV sedation was administered by anesthesia under continuous monitoring. Initially upper endoscopy was done. The Olympus GF 160 video endoscope was inserted inserted into the mouth and esophagus intubated without any difficulty and was gradually advanced into the stomach and duodenum and carefully examined. The bulb and second part of the duodenum appeared normal. Biopsies were done from the duodenum to rule out celiac disease. The scope was then withdrawn into the stomach adequately insufflated with air and upon careful examination the antrum and mild antral gastritis and biopsies were done from this area. Mucosa of the body, cardia and fundus appeared normal. The scope was then withdrawn into the esophagus. The GE junction was located at 34 cm to the incisors. Small sliding type hiatal hernia. It appeared regular with no erythema erosions or ulcerations. Rest of the esophagus appeared normal. Patient tolerated the procedure well. At this time the patient continued to remain sedation. Initial digital rectal examination was normal. Olympus CF 160 video colonoscope was then inserted into the rectum and gradually advanced to the cecum without any difficulty. Careful examination was performed as the scope was gradually being withdrawn. The prep was excellent. The cecum, ascending colon, transverse colon, descending colon appeared normal. In the sigmoid colon there was a 6 mm polyp that was removed by snare polypectomy. The rectum appeared normal. and biopsies were done from ascending and descending colon to rule out microscopic/collagenous coliti s.Retroflexion was performed in the rectum and no lesions were noted. Patient tolerated the procedure well. Impression: 1. Upper endoscopy revealed mild antral gastritis and small sliding type hiatal hernia. 2. Colonoscopy revealed a 6 mm; polyp status post polypectomy and the rest of the colon appeared normal Recommendations: Findings of this examination were discussed with the patient as well as her family. She was advised to follow with the biopsy results. She'll continue with omeprazole 20 mg daily as well as Zofran as needed for nausea. She'll be seen in office in 2-3 weeks.. If the biopsy with adenoma she can have a repeat colonoscopy in 5
[2022-08-17 08:15] VITALS: RESP 18
[2022-08-17 08:33] VITALS: BP 134/83; PULSE 66
== END 2022-08-17 09:02 | disposition home or self-care (01) ==
LOC: ORWHC2ENDO 06:44
PROVIDERS: ATTEND Internal Medicine Gastroenterology
DX: D12.5 Benign neoplasm of sigmoid colon (principal); K31.9 Disease of stomach and duodenum, unspecified; D72.820 Lymphocytosis (symptomatic); K44.9 Diaphragmatic hernia without obstruction or gangrene; K29.70 Gastritis, unspecified, without bleeding; I25.10 Atherosclerotic heart disease of native coronary artery without angina pectoris; I10 Essential (primary) hypertension; E78.5 Hyperlipidemia, unspecified; Z88.5 Allergy status to narcotic agent; Z79.899 Other long term (current) drug therapy; Z79.02 Long term (current) use of antithrombotics/antiplatelets
CPT/HCPCS: 45380; 45385; 43239; J2704; J2001; 88305

== ENCOUNTER → 2023-01-01 | Outpatient (CLI) | payer OTHER ==
[2023-01-02 09:29] LABS: African American GFR (CKD) >90; BUN/Creat Ratio 15.38 Ratio; Blood Urea Nitrogen 12.3 mg/dL; Calcium 8.8 mg/dL; Chloride 110 mmol/L; Chol/HDL Ratio 5.18 Ratio; Glucose 106 mg/dL; LDL Cholesterol,Calculated 145.9 mg/dL; Potassium 4.2 mmol/L; Sodium 143 mmol/L
[2023-01-03 10:16] LABS: Non-African American GFR(CKD) 84.6
== END | disposition home or self-care (01) ==
LOC: LABWHC1 08:46
PROVIDERS: ATTEND Nurse Practitioner
DX: I25.10 Atherosclerotic heart disease of native coronary artery without angina pectoris (principal); R00.2 Palpitations
CPT/HCPCS: 36415; 80048; 80061; 84443

== ENCOUNTER 2023-03-03 14:35 | Emergency (ER) | payer OTHER ==
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
[2023-03-03 19:12] VITALS: BP 129/80; PULSE 54; RESP 16; TEMP 98
== END 2023-03-03 19:16 | disposition home or self-care (01) ==
LOC: EC 14:35
DX: S16.1XXA Strain of muscle, fascia and tendon at neck level, initial encounter (principal); J45.909 Unspecified asthma, uncomplicated; Z88.5 Allergy status to narcotic agent; Z88.6 Allergy status to analgesic agent; Z87.891 Personal history of nicotine dependence; V49.9XXA Car occupant (driver) (passenger) injured in unspecified traffic accident, initial encounter; Y92.410 Unspecified street and highway as the place of occurrence of the external cause
CPT/HCPCS: 70450; 71046; 72125; 99284

== ENCOUNTER → 2023-03-15 | Outpatient (CLI) | payer OTHER ==
--- NOTE | 2023-03-16 09:56 | MM ---
Reason for Exam: Screening (asymptomatic). Last mammogram was performed 18 year(s) and 4 month(s) ago. Patient History: Menarche at age 12. First Full-Term at age 17. Postmenopausal. Risk Values: Terri 5 year model risk: 0.8%. NCI Lifetime model risk: 6.2%. Prior Study Comparison: 11/26/2004 Bilateral Screening Mammogram, [facility]. Tissue Density: The breast tissue is heterogeneously dense. This may lower the sensitivity of mammography. Findings: Analyzed By CAD. There is no suspicious group of microcalcifications or new suspicious mass in either breast. Overall Assessment: Negative, BI-RAD 1 Management: Screening Mammogram of both breasts in 1 year. . Patient should continue monthly self-breast exams. A clinical breast exam by your physician is recommended on an annual basis. This exam should not preclude additional follow-up of suspicious palpable abnormalities. Note on Terri scores and lifetime risk: 1. A Terri score greater than 3% is considered moderate risk. If this is the case, consider specialist referral to assess eligibility for a risk reducing agent. 2. If overall lifetime risk for the development of breast cancer is 20% or higher, the patient may qualify for future screening with alternating mammogram and breast MRI. Electronically signed and approved by: Walter Levin M.D. Radiologis
== END | disposition home or self-care (01) ==
LOC: RADMAMWWP 15:43
PROVIDERS: ATTEND Family Medicine
DX: Z12.31 Encounter for screening mammogram for malignant neoplasm of breast (principal); Z78.0 Asymptomatic menopausal state
CPT/HCPCS: 77067

== ENCOUNTER → 2023-07-05 | Outpatient (CLI) | payer OTHER ==
--- NOTE | 2023-07-05 15:43 | MR ---
EXAMINATION TYPE: MR shoulder LT wo con DATE OF EXAM: 07/05/2023 2:00 PM COMPARISON: NONE HISTORY: M25.512 l shoulder pain TECHNIQUE: Multiplanar multispin echo imaging of the left shoulder was performed. Patient motion limi ts evaluation. FINDINGS: Rotator cuff : There is thinning and heterogeneity of the supraspinatus tendon compatible chronic ten dinopathy. Motion limits evaluation. There is no complete or bursal/articular sided partial rotator c uff tear. The subscapularis constituent of the rotator cuff is intact. Bursa: No bursal effusion or thickening is seen. Musculature: There is no muscular tear, contusion, or atrophy. Acromioclavicular joint : Lateral downsloping of the acromion with subacromial spurring resulting in moderate impingement. Moderate AC joint arthropathy. Osseous structures : There are no fractures or r egions of abnormal bone marrow signal intensity. Long biceps tendon : The biceps tendon is normally situated within the bicipital groove. No complete or partial biceps tendon tear is present. Glenohumeral Joint fluid : There is no glenohumeral joint effusion. Cartilage and Bone : No focal hyaline cartilage defects are noted. No Hill-Sachs, reverse Hill-Sachs, or bony Bankart lesions are seen. Labrum : There are no SLAP or soft tissue Bankart lesions. No paralabral cysts are seen. OTHER FINDINGS : none IMPRESSION: 1. Chronic tendinopathy with subacromial impingement.
== END | disposition home or self-care (01) ==
LOC: RADMRIMAIN 12:44
PROVIDERS: ATTEND Orthopaedic Surgery
DX: M25.812 Other specified joint disorders, left shoulder (principal)

== ENCOUNTER → 2024-01-05 | Outpatient (CLI) | payer OTHER ==
[2024-01-05 19:49] LABS: Basophils # (A) 0.05 X 10*3/uL (0.00-0.10); Basophils % (A) 0.5 %; Eosinophils # (A) 0.13 X 10*3/uL (0.04-0.35); Eosinophils % (A) 1.3 %; HCT 37.7 % (37.2-46.3); Lymphocytes # (A) 1.81 X 10*3/uL (0.90-5.00); Lymphocytes % (A) 17.7 %; MCH 27.5 pg (27.0-32.0); MCHC 31.8 g/dL (32.0-37.0); MCV 86.3 FL (80.0-97.0); Mean Platelet Volume 11.5 FL (9.5-12.2); Monocytes # (A) 0.63 X 10*3/uL (0.20-1.00); Monocytes % (A) 6.2 %; NRBC Per 100 WBC 0 X 10*3/uL (0.00-0.01); Neutrophils # (A) 7.55 X 10*3/uL (1.80-7.70); Neutrophils % (A) 73.9 %; Platelet Count 315 X 10*3/uL (140-440); RBC 4.37 X 10*6/uL (4.10-5.20); RDW 13.2 % (11.5-14.5); WBC 10.21 X 10*3/uL (4.50-10.00)
[2024-01-05 23:23] LABS: Potassium 4.4 mmol/L (3.5-5.5)
== END | disposition home or self-care (01) ==
LOC: LABPAT 12:27
PROVIDERS: ATTEND Orthopaedic Surgery
DX: Z01.818 Encounter for other preprocedural examination (principal); R94.31 Abnormal electrocardiogram [ECG] [EKG]
CPT/HCPCS: 80051; 85025; 93005

== ENCOUNTER → 2024-01-19 | Day surgery (SDC) | payer OTHER ==
[2024-01-16 11:03] VITALS: BMI 42.5
--- NOTE | 2024-01-18 22:40 | HP ---
HISTORY AND PHYSICAL DATE OF SCHEDULED SURGERY: 01/19/2024. HISTORY OF PRESENT ILLNESS: Leonie Amador is a 53-year-old patient, was seen with progressive right shoulder pain. We discussed options regarding treatment. She elected to proceed with right shoulder arthroscopy. Consent was obtained. PAST MEDICAL HISTORY: Asthma, gastroesophageal reflux disease, hyperlipidemia, and hypertension. PAST SURGICAL HISTORY: Shoulder arthroscopy, cholecystectomy, section. DAILY MEDICATIONS: 1. Aspirin. 2. Atorvastatin. 3. Carvedilol. 4. Celebrex. 5. Flexeril. 6. Gabapentin. 7. Omeprazole. 8. Ventolin. ALLERGIES: Morphine, Motrin. SOCIAL HISTORY: She denies tobacco use. PHYSICAL EVALUATION OF RIGHT SHOULDER: Flexion is 130 degrees. Abduction is 90 degrees. External rotation is 30 degrees with pain and weakness. Tenderness along the anterior lateral acromion rotator cuff insertion. Impingement is positive at 80 degrees. Drop-arm sign is positive. Distal neurovascular exam is intact. RADIOGRAPHS: Right shoulder radiographs revealed previous Massimo procedure. Right shoulder MRI revealed partial rotator cuff tendon tear. IMPRESSION: 1. Right shoulder impingement with partial rotator cuff tear. 2. Hypertension. 3. Hyperlipidemia. 4. Gastroesophageal reflux disease. 5. Asthma. PLAN: Right shoulder arthroscopy with subacromial decompression, rotator cuff repair and debridement. MMODL / IJN: [id number] /
[~2024-01-19] MED LIST changes: +DEXAMETHASONE SOD PHOSPHATE 4 MG/ML 1 ML VIAL ONE; +GLYCOPYRROLATE 0.2 MG/ML 2 ML VIAL ONE; -LACTATED RINGERS 1,000 ML IV SCH; +LIDOCAINE 1% INJ 10MG/ML (20 ML MDV) ONE; +NEOSTIGMINE 1 MG/ML 10 ML VIAL ONE; +PHENYLEPHRINE-0.9% NACL SYG 1,000 MCG/10 ML SYRINGE ONE; +PROPOFOL 10 MG/ML 20 ML VIAL IV ONE; +ROCURONIUM 10 MG/ML (5 ML VIAL) IV ONE; +ROPIVACAINE 5 MG/ML 30 ML VIAL ONE; +SUCCINYLCHOLINE CHLORIDE 200 MG/10 ML VIAL IV ONE; +ePHEDrine 50 MG/ML 1 ML VIAL ONE; +fentaNYL (PF) 50 MCG/ML 2 ML AMP IV PRN; +fentaNYL (PF) 50 MCG/ML 2 ML AMP ONE
[2024-01-19] MEDS: ONDANSETRON 4 MG/2 ML VIAL IVP ONE (06:53)
[2024-01-19] MEDS: DEXAMETHASONE SOD PHOSPHATE 4 MG/ML 1 ML VIAL IV ONE (06:53)
[2024-01-19] MEDS: SCOPOLAMINE 1 MG/72 HR PATCH TRANSDERM ONE (06:53)
[2024-01-19] MEDS: LACTATED RINGERS 1,000 ML IV SCH (06:54)
[2024-01-19] MEDS: IV FLUID CONTINUATION 1,000 ML IV ONE ×2 (06:54→10:09)
[2024-01-19] MEDS: MIDAZOLAM 2 MG/2 ML VIAL IVP ONE (07:02)
[2024-01-19 08:57] VITALS: TEMP 96.9
--- NOTE | 2024-01-19 08:57 | P.OP ---
Date of Procedure: 01/19/24 Preoperative Diagnosis: Right shoulder impingement Postoperative Diagnosis: 1. Right shoulder rotator cuff tear 2. Right shoulder impingement 3. Right shoulder bicipital tendinitis 4. Right shoulder superficial labral tear Procedure(s) Performed: 1. Right shoulder arthroscopic rotator cuff repair 2. Right shoulder arthroscopic subacromial decompression 3. Right shoulder arthroscopic biceps tenodesis 4. Right shoulder arthroscopic debridement labral tear Implants: 2Arthrex 4.75 swivel lock anchors Anesthesia: GETA, regional (Interscalene block) Surgeon: Hans Dowd Textile Supervisor #1: Renny Mosher Estimated Blood Loss (ml): 7 Pathology: none sent Condition: stable Disposition: PACU Indications for Procedure: 53-year-old patient seen with progressive right shoulder pain. After we discussed treatment options, she elected to proceed with arthroscopy. Operative Findings: See description of procedure Description of Procedure: Patient underwent an interscalene block by department of anesthesia. The patient was then taken to the operative suite. The patient underwent a general anesthetic by the department of anesthesia. The patient was placed into a lateral position and secured. There was appropriate padding of the bony prominence. Right shoulder was then prepped and draped in normal sterile orthopedic fashion. We placed the extremity in 10 pounds of longitudinal traction. A posterior incision was now made for a posterior working portal site. The trocar and cannula were inserted into the glenohumeral joint. Arthroscopy was initiated. Spinal needle was now inserted anteriorly, to ascertain the anterior working portal site. An incision was now made in that area, a trocar was inserted followed by a probe. There was superficial tearing of the superior labrum. There was hyperemia along the biceps tendon consistent with bicipital tendinitis. There was no significant chondromalacia present. I decided to proceed with an arthroscopic biceps tenotomy. I first debrided out the superficial labral tear. I now placed a cannula through the anterior portal site. I now passed a loop and tack type stitch to the biceps tendon. I now rel eased the biceps from the superior labral anchor. With the assistance of Regino GOLD I punched a hole at the interval for insertion of an anchor. The suture was passed through the eyelet of an Arthrex 4.75 swivel lock anchor. I placed the eyelet into our prepunched hole. I held in position while Regino GOLD tensioned the suture and deployed the anchor. The residual suture limb was clipped. We had a stable appearing biceps tenodesis. Utilizing the posterior working portal site, the trocar and cannula were inserted into the subacromial space. Arthroscopy initiated. I made an incision 2 fingerbreadths lateral to the acromion. I introduced my trocar followed by my ArthroCare ablator. I now began ablating thick subacromial bursal tissue, which exposed the undersurface of the anterior acromion. There was diminished subacromial space. There was a prominent subacromial spur present. I used a motorized bur and performed a decompression. I noted good decompression of subacromial space. There was evidence of previous Massimo procedure was appears stable. I now turned my attention to the rotator cuff tendon. I noted a tear through the posterior aspect of the distal supraspinatus. This measured under centimeter. I debrided the margins getting down to stable tendon tissue. I abraded the footprint with a motorized bur. I passed 3 inverted mattress sutures through good bites of rotator cuff tendon. I punched a hole in the footprint area for insertion of an anchor. All 6 limbs of suture were passed through the eyelet of an Arthrex 4.75 swivel lock anchor. I placed the eyelet into the preplanned hole. I held in position while Regino GOLD tensioned all 6 limbs of suture and deployed the anchor with good fixation noted. All residual suture limbs were now clipped. We had good compression of the tendon along the entire footprint. Instruments now removed from the portal sites. All portal sites were approximated with nylon suture. Sterile dressings were applied followed by a shoulder sling. Renny GOLD assisted in this complex case. The patient was awakened, transferred to a bed, and taken to recovery in stable condition.
[2024-01-19] MEDS: ONDANSETRON 4 MG/2 ML VIAL IVP STA (10:25)
[2024-01-19] MEDS: droPERidol 5 MG/2 ML VIAL IVP ONE (10:50)
[2024-01-19 11:45] VITALS: RESP 18
[2024-01-19 11:56] VITALS: BP 118/60; PULSE 58
--- NOTE | 2024-01-19 18:06 | P.ANPRN ---
Procedure Note - Anesthesia - Nerve Block Performed Right Interscalene Single Time Out Performed: Yes Date of Procedure: 01/19/24 Procedure Start Time: 07:01 Procedure Stop Time: 07:04 Location of Patient: PreOp Indication: Acute Post-Operative Pain, Requested by Surgeon Sedation Type: Sedate with meaningful contact maintained Preparation: Sterile Prep Position: Supine Catheter: None Needle Types: Pajunk Needle Gauge: 21 Ultrasound used to visualize needle placement: Yes Ultrasound used to observe medication spread: Yes Blood Aspirated: No Pain Paresthesia on Injection Noted: No Resistance on Injection: Normal Image Stored and Saved: Yes Events: Uneventful and Well Tolerated (Ropivacaine 0.5% 20 cc plus dexamethasone 4 mg)
== END | disposition home or self-care (01) ==
LOC: OR 05:42
PROVIDERS: ATTEND Orthopaedic Surgery
DX: M75.111 Incomplete rotator cuff tear or rupture of right shoulder, not specified as traumatic (principal); M25.811 Other specified joint disorders, right shoulder; M75.21 Bicipital tendinitis, right shoulder; M75.41 Impingement syndrome of right shoulder; K21.9 Gastro-esophageal reflux disease without esophagitis; J45.909 Unspecified asthma, uncomplicated; I10 Essential (primary) hypertension; G89.18 Other acute postprocedural pain; E78.5 Hyperlipidemia, unspecified; Z88.5 Allergy status to narcotic agent; Z90.49 Acquired absence of other specified parts of digestive tract; Z79.51 Long term (current) use of inhaled steroids; Z79.899 Other long term (current) drug therapy; Z79.82 Long term (current) use of aspirin
CPT/HCPCS: 64415; 29826; 29827; 29828; C1713 ×3; J2250; J1100; J0690; J2405; J1790

== ENCOUNTER → 2024-04-24 | Outpatient (CLI) | payer OTHER ==
--- NOTE | 2024-04-24 11:26 | CTL ---
EXAMINATION TYPE: CT Low Dose Lung DATE OF EXAM ORDERED: 04/24/2024 HISTORY: Personal history of nicotine use, former smoker, quit 2009, 20 pack year history. Lung cance r screening CT DLP: 91.[address] CTDI: 2.6 mGy Automated exposure control for dose reduction was used. SCREENING VISIT: First screening visit COMPARISON: No direct comparisons TECHNIQUE: Low dose computed tomography scan was performed through the chest at 1 mm thick sections a nd reconstructed images in multiple planes at 1 mm and [address] DIAGNOSTIC QUALITY: Satisfactory FINDINGS: Nodules: No clinically significant pulmonary nodules. LUNGS: COPD: Severity: None Fibrosis: Severity: None Lymph nodes: None Other findings: Possible right apical azygous fissure. RIGHT PLEURAL SPACE: Effusion: None Calcification: None Thickening: None Pneumothorax: None LEFT PLEURAL SPACE: Effusion: None Calcification: None Thickening: None Pneumothorax: None HEART: Heart Size: Normal Coronary Calcification: Small Pericardial Effusion: None OTHER FINDINGS: Upper abdomen: Postcholecystectomy changes. Small hiatal hernia. Bony thorax: None Supraclavicular region: None Other: Mild atherosclerotic calcification of the aorta and its branches. IMPRESSION: No clinically significant pulmonary nodules. CT LUNG RAD AND CT CHEST RECOMMENDATION: Lung-Rad 1 Negative: Continue annual screening with LDCT in 12 months. S Modifier (other clinically significant findings): None [facility], , 04/24/2024 11:23 AM
--- NOTE | 2024-04-29 14:50 | MM ---
Reason for Exam: Screening (asymptomatic). Last mammogram was performed 1 year(s) and 1 month(s) ago. Patient History: Menarche at age 12. First Full-Term at age 17. Postmenopausal. Patient used Hormonal Contraceptives for 2 years. Risk Values: Terri 5 year model risk: 0.8%. NCI Lifetime model risk: 6.1%. Prior Study Comparison: 11/26/2004 Bilateral Screening Mammogram, [facility]. 03/15/2023 Bilateral MG screening mammo w CAD, [facility]. Tissue Density: There are scattered areas of fibroglandular density. Findings: Analyzed By CAD. The pattern is symmetrical. No significant interval change is evident. No suspicious groups of microcalcifications, spiculated or lobular masses, architectural distortion or other secondary signs of malignancy are mammographically apparent. Overall Assessment: Benign, BI-RAD 2 Management: Screening Mammogram of both breasts in 1 year. A negative mammogram report should not preclude additional follow up of suspicious palpable abnormalities. Patient should continue monthly self breast exam. A clinical breast exam by your physician is recommended on an annual basis and results should be correlated with mammographic findings. Note on Terri scores and lifetime risk: 1. A Terri score greater than 3% is considered moderate risk. If this is the case, consider specialist referral to assess eligibility for a risk reducing agent. 2. If overall lifetime risk for the development of breast cancer is 20% or higher, the patient may qualify for future screening with alternating mammogram and breast MRI. [facility], , 04/29/2024 2:47 PM. Electronically signed and approved by: Delvis Thurman D.O. Radiologis
== END | disposition home or self-care (01) ==
LOC: RADMAMWWP 09:34
PROVIDERS: ATTEND Family Medicine
DX: Z12.2 Encounter for screening for malignant neoplasm of respiratory organs (principal); Z12.31 Encounter for screening mammogram for malignant neoplasm of breast; R92.323 Mammographic fibroglandular density, bilateral breasts; Z87.891 Personal history of nicotine dependence; Z78.0 Asymptomatic menopausal state
CPT/HCPCS: 71271; 77067

== ENCOUNTER → 2024-11-08 | Outpatient (CLI) | payer OTHER ==
--- NOTE | 2024-11-08 14:53 | CT ---
EXAMINATION TYPE: CT abdomen pelvis wo con DATE OF EXAM: 11/08/2024 COMPARISON: None CLINICAL INDICATION: Female, 54 years old with history of R10.11 RIGHT UPPER QUADRANT PAIN; PHH, epig astric burning TECHNIQUE: CT scan of the abdomen and pelvis is performed without oral or IV contrast. CT DLP: 1128.[address] CTDI: mGy Automated exposure control for dose reduction was used. FINDINGS: Within the limitations of a non-contrast study, the following observations are made. The lungs are clear. The gallbladder is surgically absent . 0There is no biliary ductal dilatation. There is no organomegaly of the liver, pancreas, spleen or adrenal glands. There are no renal calcifications or hydronephrosis. The caliber of the abdominal aorta is normal and there is no retroperitoneal adenopathy or hemorrhage . The bowel loops are normal in caliber is no evidence of obstruction. No inflammatory changes are iden tified in the mesentery and there is no free intraperitoneal air or fluid. There is no pelvic mass, free fluid, abscess or adenopathy. There is mild diverticulosis of the colon without CT evidence of diverticulitis. The osseous structures and soft tissues are unremarkable. IMPRESSION: No significant abnormality seen. [facility], , 11/08/2024 2:51 PM
== END | disposition home or self-care (01) ==
LOC: RADCTMAIN 13:32
PROVIDERS: ATTEND Family Medicine
DX: R10.11 Right upper quadrant pain (principal)
CPT/HCPCS: 74176